=== PATIENT | male | born 1955 | race Two or more races ===

== ENCOUNTER 2016-10-08 09:30 | Outpatient (CLI) | payer BC | END 2016-10-08 23:59 | disposition home or self-care (01) | LOC: MRI 09:30 | PROVIDERS: ATTEND Legal Medicine | DX: S73.101A Unspecified sprain of right hip, initial encounter (principal); M94.251 Chondromalacia, right hip; X58.XXXA Exposure to other specified factors, initial encounter; Y93.89 Activity, other specified; Y92.89 Other specified places as the place of occurrence of the external cause; Y99.8 Other external cause status | CPT/HCPCS: 73721-TC ==

== ENCOUNTER 2016-12-04 15:10 | Outpatient (CLI) | payer BC ==
[2016-12-04 15:57] LABS: BASOPHILS % (AUTO) 0.6 % (0.0-2.0); EOSINOPHILS # (AUTO) 0.2 /CMM (0.0-0.7); EOSINOPHILS % (AUTO) 2.4 % (0.0-6.0); HEMATOCRIT 48 % (39-51); HEMOGLOBIN 15.9 g/dL (13.5-17.5); LYMPHOCYTES # (AUTO) 1.3 /CMM (0.8-4.8); LYMPHOCYTES % (AUTO) 17.1 % (20.0-44.0); MEAN CORPUSCULAR HEMOGLOBIN 29 PG (26.0-33.0); MEAN CORPUSCULAR HGB CONC 33 g/dl (31.0-36.0); MEAN CORPUSCULAR VOLUME 88 fL (80-96); MONOCYTES # (AUTO) 0.4 /CMM (0.1-1.30); NEUTROPHILS # (AUTO) 5.8 /CMM (1.8-8.9); NEUTROPHILS % (AUTO) 74.9 % (43.0-81.0); PLATELET COUNT (AUTO) 343 /CMM (150-450); RDW COEFFICIENT OF VARIATION 13.6 (11.5-15.0); RED BLOOD CELL COUNT(AUTO) 5.49 MIL/uL (4.5-6.0); WHITE BLOOD COUNT (AUTO) 7.7 K/uL (4.3-11.0)
[2016-12-04 16:00] LABS: APPEARANCE,URINE SL CLOUDY (CLEAR); BILIRUBIN,URINE NEGATIVE (NEGATIVE); BLOOD, URINE NEGATIVE Ery/uL (NEGATIVE); COLOR,URINE YELLOW (YELLOW); KETONES,URINE NEGATIVE (NEGATIVE); LEUKOCYTE ESTERASE ,URINE NEGATIVE (NEGATIVE); NITRITE, URINE NEGATIVE (NEGATIVE); PH,URINE 5.5 (5.0-8.0); PROTEIN,URINE NEGATIVE (NEGATIVE); UGLUCOSE NEGATIVE (NEGATIVE); UROBILINOGEN,URINE 0.2 EU/dL (0.2)
[2016-12-04 16:12] LABS: BILIRUBIN,TOTAL 0.6 mg/dL (0.2-1.0); CALCIUM, SERUM 9.5 mg/dL (8.5-10.1); POTASSIUM 4.3 mmol/L (3.5-5.1); TOTAL PROTEIN, SERUM 7.7 g/dL (6.4-8.2)
[2016-12-04 16:15] LABS: INR 0.96 (0.87-1.13)
== END 2016-12-04 23:59 | disposition home or self-care (01) ==
LOC: LAB 15:10
PROVIDERS: ATTEND Legal Medicine
DX: Z01.818 Encounter for other preprocedural examination (principal); J98.11 Atelectasis; I70.0 Atherosclerosis of aorta; M47.894 Other spondylosis, thoracic region; R79.1 Abnormal coagulation profile
CPT/HCPCS: 36415; 71020-TC; 80053-TC; 81000-TC; 85025-TC; 85730-TC

== ENCOUNTER 2016-12-06 11:04 | Day surgery (SDC) | payer BC ==
[2016-12-06] MEDS ORDERED: ANESTHESIA TRAY IN PYXIS 1 EA TRAY MC ONE (12:16)
[2016-12-06] MEDS ORDERED: FENTANYL PF 100MCG/2ML AMPUL ONE (12:50)
[2016-12-06] MEDS ORDERED: MIDAZOLAM HCL 2 MG/2ML VIAL ONE (12:51)
[2016-12-06] MEDS ORDERED: BETA ACET/BET NA PHOS MDV 6 MG/ML VIAL ONE (12:53)
[2016-12-06] MEDS ORDERED: BUPIVACAINE 0.5 % PF 150 MG/30 ML VIAL ONE (12:53)
[2016-12-06] MEDS ORDERED: LIDOCAINE 0.5% HCL 50 ML VIAL ONE (12:54)
[2016-12-06] MEDS ORDERED: IOHEXOL 50 ML IV ONE (13:04)
== END 2016-12-06 13:57 | disposition home or self-care (01) ==
LOC: DS 11:04
PROVIDERS: ATTEND Student in an Organized Health Care Education/Training Program
DX: M25.851 Other specified joint disorders, right hip (principal); I10 Essential (primary) hypertension; Z91.013 Allergy to seafood; E78.2 Mixed hyperlipidemia; M10.9 Gout, unspecified
CPT/HCPCS: 20610; 73501; 82962; 93005; A6402; J0702; J2250; J2704; J3010; J3490 ×2; Q9967

== ENCOUNTER 2017-09-10 10:59 | Outpatient (CLI) | payer BC | END 2017-09-10 23:59 | disposition home or self-care (01) | LOC: RAD 10:59 | PROVIDERS: ATTEND Legal Medicine | DX: M19.041 Primary osteoarthritis, right hand (principal) | CPT/HCPCS: 73130-TC ==

== ENCOUNTER 2017-09-11 08:41 | Outpatient (CLI) | payer BC ==
[2017-09-11 09:20] LABS: C-REACTIVE PROTEIN 0.4 mg/dL (0.0-0.9); URIC ACID 7.7 mg/dL (2.6-7.2)
[2017-09-11 09:26] LABS: BASOPHILS % (AUTO) 0.5 % (0.0-2.0); HEMATOCRIT 46 % (39-51); HEMOGLOBIN 15.2 g/dL (13.5-17.5); LYMPHOCYTES # (AUTO) 1.1 /CMM (0.8-4.8); LYMPHOCYTES % (AUTO) 20.3 % (20.0-44.0); MEAN CORPUSCULAR HEMOGLOBIN 30 PG (26.0-33.0); MEAN CORPUSCULAR HGB CONC 34 g/dl (31.0-36.0); MEAN CORPUSCULAR VOLUME 90 fL (80-96); MONOCYTES # (AUTO) 0.3 /CMM (0.1-1.30); MONOCYTES % (AUTO) 5.9 % (2.0-12.0); NEUTROPHILS # (AUTO) 3.8 /CMM (1.8-8.9); NEUTROPHILS % (AUTO) 69.3 % (43.0-81.0); PLATELET COUNT (AUTO) 287 /CMM (150-450); RDW COEFFICIENT OF VARIATION 13.4 (11.5-15.0); RED BLOOD CELL COUNT(AUTO) 5.08 MIL/uL (4.5-6.0); WHITE BLOOD COUNT (AUTO) 5.6 K/uL (4.3-11.0)
== END 2017-09-11 23:59 | disposition home or self-care (01) ==
LOC: LAB 08:41
PROVIDERS: ATTEND Legal Medicine
DX: M10.9 Gout, unspecified (principal)
CPT/HCPCS: 36415; 84550-TC; 85025-TC; 85652-TC; 86140-TC

== ENCOUNTER 2018-07-21 09:04 | Outpatient (CLI) | payer BC ==
[2018-07-21] MEDS ORDERED: GADODIAMIDE 2.5 MMOL/5 ML VIAL IJ ONE (09:05)
== END 2018-07-21 23:59 | disposition home or self-care (01) ==
LOC: MRI 09:04
PROVIDERS: ATTEND Legal Medicine
DX: N50.89 Other specified disorders of the male genital organs (principal)
CPT/HCPCS: 72197; A9579

== ENCOUNTER 2018-11-07 09:33 | Outpatient (CLI) | payer BC | END 2018-11-07 23:59 | disposition home or self-care (01) | LOC: US 09:33 | PROVIDERS: ATTEND Legal Medicine | DX: N43.3 Hydrocele, unspecified (principal); N50.89 Other specified disorders of the male genital organs | CPT/HCPCS: 76870-TC ==